=== PATIENT | male | born 1980 | race Caucasian/White ===

== ENCOUNTER 2016-09-28 20:38 | Emergency (ER) | payer OTHER ==
[~2016-09-28] VITALS: Ht 167.6 cm; Wt 78.6 kg
[2016-09-28] MEDS ORDERED: SOD CHLORIDE 0.9% 1,000 ML IV STA (20:44)
[2016-09-28 20:45] VITALS: Ht 167.6 cm; Wt 78.6 kg
[2016-09-28 21:15] LABS: ABNORMAL IP MESSAGE 1; BASOPHIL # 0.1 10^3/ul (0.0-0.1); BASOPHILS % 0.5 % (0.0-2.0); EOSINOPHILS # 0.4 10^3/ul (0.0-0.5); EOSINOPHILS % 2.4 % (0.0-7.0); HEMATOCRIT 45.8 % (42.0-52.0); HEMOGLOBIN 15.5 g/dl (14.0-18.0); LYMPHOCYTES # 6.2 10^3/ul (0.8-2.9); MEAN CORPUSCULAR HEMOGLOBIN 28.6 pg (29.0-33.0); MEAN CORPUSCULAR HGB CONC 33.8 g/dl (32.0-37.0); MEAN CORPUSCULAR VOLUME 84.5 fl (82.0-101.0); MEAN PLATELET VOLUME 9.6 fl (7.4-10.4); MONOCYTE # 1.5 10^3/ul (0.3-0.9); MONOCYTES % 10.4 % (0.0-11.0); NEUTROPHIL # 6.6 10^3/ul (1.6-7.5); NEUTROPHILS % 44.1 % (39.0-77.0); PLATELET COUNT 358 10^3/UL (140-415); RED BLOOD COUNT 5.42 10^6/ul (4.70-6.10); RED CELL DISTRIBUTION WIDTH 12.7 % (11.5-14.5); WHITE BLOOD COUNT 14.8 10^3/ul (4.8-10.8)
--- NOTE | 2016-09-28 21:22 | RADRPT ---
PROCEDURE: XR Chest. CLINICAL INDICATION: Chest pain. TECHNIQUE: Single frontal chest x-ray. COMPARISON: None. FINDINGS: The cardiomediastinal silhouette is unremarkable. There is no congestive heart failure.. No focal i nfiltrate is seen. There is no pleural effusion. There is no pneumothorax. The osseous structures are unremarkable. IMPRESSION: 1. No active disease. RPTAT: [facility] .Darshan Weber MD, MD Date Time Electronically viewed and signed by .Darshan Weber MD, MD on 09/28/2016 21:22 .K/
[2016-09-28] MEDS ORDERED: ONDANSETRON 4 MG INJ ONE (21:26)
[2016-09-28 21:31] LABS: INR 0.93; PROTIME 12.5 Sec (12.2-14.2)
[2016-09-28] MEDS ORDERED: ONDANSETRON 4 MG INJ IV STA (21:31)
[2016-09-28 21:32] LABS: PARTIAL THROMBOPLASTIN TIME 23.5 Sec (25.0-35.0)
[2016-09-28 21:34] LABS: ALANINE AMINOTRANSFERASE 49 IU/L (13-69); ALBUMIN 5.1 g/dl (3.3-4.9); ALBUMIN/GLOBULIN RATIO 1.59; ALKALINE PHOSPHATASE 71 IU/L (42-121); ANION GAP 21 (8-16); ASPARTATE AMINO TRANSFERASE 29 IU/L (15-46); BILIRUBIN,INDIRECT 0.1 mg/dl (0-1.1); BILIRUBIN,TOTAL 0.1 mg/dl (0.2-1.3); BLOOD UREA NITROGEN 12 mg/dl (7-20); CALCIUM 9.3 mg/dl (8.4-10.2); CARBON DIOXIDE 22 mmol/L (21-31); CHLORIDE 100 mmol/L (97-110); CREATININE 0.96 mg/dl (0.61-1.24); GLUCOSE 158 mg/dl (70-220); SODIUM 140 mmol/L (135-144); TOTAL PROTEIN 8.3 g/dl (6.1-8.1)
[2016-09-28 21:41] LABS: ADD SCAN DIFF NO
[2016-09-28 21:43] LABS: POTASSIUM 2.9 mmol/L (3.5-5.1)
[2016-09-28 21:46] LABS: TROPONIN-I < 0.012 ng/ml (0.00-0.12)
[2016-09-28] MEDS ORDERED: POTASSIUM CHLORIDE 20 MEQ POWDER FOR ORAL SOLN PO ONE (22:00)
[2016-09-28 22:05] LABS: BARBITURATES Negative (NEGATIVE); BENZODIAZEPINES Negative (NEGATIVE); CANNABINOIDS Negative (NEGATIVE); COCAINE Negative (NEGATIVE); OPIATES Negative (NEGATIVE)
--- NOTE | 2016-09-28 23:00 | ERD ---
ER Documentation Chief Complaint Date/Time DATE: 09/28/16 TIME: 20:45 Chief Complaint BIBA [id number] c/o being thirsty and SOB,denies pain HPI 36-year-old male brought to the ED by rescue ambulance complaining of shortness of breath after binge alcohol consumption and marijuana smoking tonight. Palpitations but no chest pain. No headache, visual changes, focal weakness or numbness. Dizziness and nausea but no abdominal pain, vomiting or diarrhea. No hematemesis hematochezia. No cough or sputum production. No fevers or chills. ROS All systems reviewed and are negative except as per history of present illness. Allergies Allergies: Coded Allergies: No Known Allergy (Unverified , 09/28/16) PMhx/Soc Reviewed in chart. As per HPI History of Surgery: No Anesthesia Reaction: No Hx Neurological Disorder: No Hx Respiratory Disorders: Yes (asthma) Hx Cardiac Disorders: No Hx Psychiatric Problems: No Hx Miscellaneous Medical Probl: No Hx Alcohol Use: Yes (occasionally,3 glasses of beer) Hx Substance Use: No Smoking Status: Current some day smoker FmHx No coronary artery disease, stroke or cancer Physical Exam Vitals Vital Signs Date Time Temp Pulse Resp B/P Pulse Ox O2 Delivery O2 Flow Rate FiO2 09/28/16 23:50 98.2 99 20 135/90 99 Room Air 09/28/16 21:08 112 36 134/89 96 Room Air 09/28/16 20:45 97.9 137 18 163/104 97 Physical Exam Const: Alert Head: Atraumatic Eyes: Normal Conjunctiva pupils equal reactive to light, extraocular movements are intact. Horizontal nystagmus ENT: Normal External Ears, Nose and Mouth. Neck: Full range of motion. Nontender. No JVD. Resp: Breath sounds are equal and clear to auscultation bilaterally Cardio: Tachycardic, regular rate and rhythm, no murmurs Abd: Soft, non tender, non distended. Normal bowel sounds Skin: No petechiae or rashes Back: No midline or flank tenderness Ext: No cyanosis, or edema Neur: Awake and alert. No focal deficit observed. Psych: Appears anxious but not depressed. Result Diagram: 09/28/16204909/28/162049 Results 24 hrs Laboratory Tests Test 09/28/16 20:42 09/28/16 20:50 09/28/16 21:00 Bedside Glucose 149mg/dL White Blood Count 14.810^3/ul Red Blood Count 5.4210^6/ul Hemoglobin 15.5g/dl Hematocrit 45.8% Mean Corpuscular Volume 84.5fl Mean Corpuscular Hemoglobin 28.6pg Mean Corpuscular Hemoglobin Concent 33.8g/dl Red Cell Distribution Width 12.7% Platelet Count 52629^3/UL Mean Platelet Volume 9.6fl Neutrophils % 44.1% Lymphocytes % 42.0% Monocytes % 10.4% Eosinophils % 2.4% Basophils % 0.5% Nucleated Red Blood Cells % 0.0/100WBC Neutrophils # 6.610^3/ul Lymphocytes # 6.210^3/ul Monocytes # 1.510^3/ul Eosinophils # 0.410^3/ul Basophils # 0.110^3/ul Nucleated Red Blood Cells # 0.010^3/ul Prothrombin Time 12.5Sec Prothrombin Time Ratio 1.0 INR International Normalized Ratio 0.93 Activated Partial Thromboplast Time 23.5Sec Sodium Level 140mmol/L Potassium Level 2.9mmol/L Chloride Level 100mmol/L Carbon Dioxide Level 22mmol/L Anion Gap 21 Blood Urea Nitrogen 12mg/dl Creatinine 0.96mg/dl Glucose Level 158mg/dl Calcium Level 9.3mg/dl Total Bilirubin 0.1mg/dl Direct Bilirubin 0.00mg/dl Indirect Bilirubin 0.1mg/dl Aspartate Amino Transf (AST/SGOT) 29IU/L Alanine Aminotransferase (ALT/SGPT) 49IU/L Alkaline Phosphatase 71IU/L Troponin I < 0.012ng/ml Total Protein 8.3g/dl Albumin 5.1g/dl Globulin 3.20g/dl Albumin/Globulin Ratio 1.59 Ethyl Alcohol Level 223.0mg/dl Urine Opiates Screen Negative Urine Barbiturates Negative Urine Amphetamines Screen Negative Urine Benzodiazepines Screen Negative Urine Cocaine Screen Negative Urine Cannabinoids Negative Current Medications Medications (Trade) Dose Ordered Sig/Waldemar Route PRN Reason Start Time Stop Time Status Last Admin Dose Admin Sodium Chloride (NS) 1,000 ml @ 1,000 mls/hr Q1H STAT IV 09/28/16 20:44 09/28/16 21:43 DC 09/28/16 21:05 Ondansetron HCl (Zofran Inj) 4 mg STK-MED ONCE .ROUTE 09/28/16 21:26 09/28/16 21:27 DC Ondansetron HCl (Zofran Inj) 4 mg ONCE STAT IV 09/28/16 21:31 09/28/16 21:32 DC 09/28/16 21:37 Potassium Chloride (Potassium Chloride Pwd/Soln) 40 meq ONCE ONCE PO 09/28/16 22:00 09/28/16 22:01 DC 09/28/16 22:25 Potassium Chloride (Potassium Chloride Pwd/Soln) 40 meq ONCE ONCE PO 09/29/16 00:00 09/29/16 00:01 DC 09/28/16 23:46 EKG: TIME: 20:38, sinus tachycardia. Ventricular rate 140. No ectopy. No acute ST-T wave changes. EP Interpretation: Sinus tachycardia otherwise normal EKG. IMAGING: PROCEDURE: XR Chest. CLINICAL INDICATION: Chest pain. TECHNIQUE: Single frontal chest x-ray. COMPARISON: None. FINDINGS: The cardiomediastinal silhouette is unremarkable. There is no congestive heart failure.. No focal infiltrate is seen. There is no pleural effusion. There is no pneumothorax. The osseous structures are unremarkable. IMPRESSION: 1. No active disease. RPTAT: [facility] .Darshan Weber MD, Date Time Electronically viewed and signed by .Darshan Weber MD, on 09/28/2016 21:22 .K/ Procedures/MDM DOCUMENTS REVIEWED: ED nurse, no prior records REEXAMINATION/REEVALUATION: Time: 23:30. Alert. Feels much better. Ambulatory with a steady gait. at bedside and will take him home. MEDICAL DECISION MAKIN-year-old male brought to the ED by rescue ambulance complaining of shortness of breath after binge alcohol consumption and marijuana smoking tonight. Patient presents with signs and symptoms consistent with ETOH intoxication. Hypokalemia replaced orally with potassium chloride 40 mEq 2. No chest pain, acute EKG changes, elevated troponin or evidence of ACS. Acute dyspnea likely secondary to anxiety reaction. Chest x-ray negative for pneumothorax, infiltrate or effusion. No risk for PE. Stable for discharge with precautionary instructions and outpatient follow-up as counseled. Counseled patient and family regarding diagnostic workup, diagnosis and need for followup. Understands to return to ED if symptoms recur, worsen or any other concerns. Departure Diagnosis: Primary Impression: Acute alcohol intoxication Complication of substance-induced condition: with unspecified complication Qualified Code: F10.129 - Acute alcohol intoxication, with unspecified complication Additional Impressions: Hypokalemia Marijuana abuse Condition: Stable (Improved) CONSTANTINO GAO MD Sep 28, 2016 23:00
[2016-09-28 23:50] VITALS: BP 135/90; PULSE 99; RESP 20; TEMP 98.2
[2016-09-29] MEDS ORDERED: POTASSIUM CHLORIDE 20 MEQ POWDER FOR ORAL SOLN PO ONE
== END 2016-09-29 00:08 | disposition home or self-care (01) ==
LOC: E/R 20:38
DX: F10.129 Alcohol abuse with intoxication, unspecified (principal); R40.2252 Coma scale, best verbal response, oriented, at arrival to emergency department; E87.6 Hypokalemia; F12.10 Cannabis abuse, uncomplicated; F17.210 Nicotine dependence, cigarettes, uncomplicated; R40.2142 Coma scale, eyes open, spontaneous, at arrival to emergency department; R40.2362 Coma scale, best motor response, obeys commands, at arrival to emergency department
CPT/HCPCS: 71010; 80053; 80306; 80307; 82962; 84484; 85025; 85610; 85730; J2405; J7030; Z7610; 36415; 93005; 96374